=== PATIENT | male | born 1945 | race Caucasian/White ===

== ENCOUNTER 2023-08-23 10:36 | Day surgery (SDC) | payer OTHER ==
[2023-08-21 13:16] LABS: Absolute Basophils 0.1 K/uL (0-0.5); Absolute Eosinophils 0.1 K/uL (0-0.5); Absolute Lymphocytes (CBC) 1.3 K/uL (0.7-4.9); Absolute Monocytes 0.7 K/uL (0.1-1.3); Absolute Neutrophil 5.4 K/uL (1.8-8.0); Basophils % 0.9 % (0-1.3); Eosinophils % 1.5 % (0-4.4); Hematocrit 34.3 % (39.6-49.0); Hemoglobin 11.5 g/dL (13.6-17.9); Lymphocytes % 16.5 % (15.3-44.8); MCH 32.4 pg (27.0-35.0); MCHC 33.5 g/dL (32.0-36.0); MPV 8.4 fL (7.6-11.3); Monocytes % 9.7 % (3.3-12.3); Neutrophils % 71.4 % (41.7-73.7); Platelets 114 thou/uL (152-406); RBC Red Blood Cell Count 3.54 M/uL (4.33-5.43); Red Cell Distribution Width 16.9 % (12.1-15.2)
[2023-08-21 13:53] LABS: Anion Gap 11.3 mEq/L (5.0-15.0); Potassium 5.3 mEq/L (3.5-5.1)
--- NOTE | 2023-08-21 17:03 | EKG ---
Test Date: 2023-08-21 Test Time: 13:47:12 [employer] Manager: GIA MEASUREMENT RESULTS: Intervals: Rate: 93 MO: QRSD: 130 QT: 428 QTc: 532 [place]: P: MO: QRS: -27 T: 122 INTERPRETIVE STATEMENTS: Marked sinus bradycardia with AV dissociation and Wide QRS rhythm with premature supraventricular complexes with occasional pre Left bundle branch block Abnormal ECG No previous ECG available for comparison Electronically Signed On 08-21-23 17:02:05 PACK PRESS OPERATOR by Fredi Spivey
[2023-08-23] MEDS: NA CHLORIDE 0.9% 500 ML ONE (11:20)
[2023-08-23] MEDS ORDERED: ONDANSETRON 4 MG/2 ML VIAL ONE (12:26)
[2023-08-23] MEDS ORDERED: FENTANYL CITR 100 MCG/2 ML ONE (12:26)
[2023-08-23] MEDS ORDERED: propofoL 200 MG/20 ML VIAL IV ONE (12:26)
[2023-08-23] MEDS ORDERED: ROCURONIUM 50 MG/5 ML VIAL IV ONE (12:27)
[2023-08-23] MEDS ORDERED: LIDOCAINE 2% MPF 5 ML VIAL ONE (12:27)
[2023-08-23] MEDS: CEFAZOLIN SODIUM 2 GM/VIAL ONE (12:50)
[2023-08-23] MEDS: BUPIVACAINE 0.25% PF 30 ML VIAL ONE (13:30)
[2023-08-23] MEDS ORDERED: SUGAMMADEX SODIUM 200 MG/2 ML VIAL IV ONE (13:50)
[2023-08-23] MEDS: HEPARIN 500 UNIT/5 ML SYR IV ONE (14:00)
--- NOTE | 2023-08-23 14:15 | P.OP ---
Preoperative diagnosis: Peritoneal Dialysis Catheter Dysfunction Postoperative diagnosis: Peritoneal Dialysis Catheter Dysfunction Primary procedure: Exploratory Laparoscopy Secondary procedure: Revision /Repair of Dysfunctional PD catheter Other procedure(s): Laparoscopic adhesiolysis Anesthesia: GETA + Local Estimated blood loss: < 5 Specimen: None Findings: PD Catheter contained in Omental tissue Complications: None Implants: Original PD Cath remains in place Transferred to: Recovery Room Condition: Good
[2023-08-23] MEDS: LABETALOL 20 MG/4ML SYRINGE IV ONE (14:46)
[2023-08-23 16:06] VITALS: BP 141/74; TEMP 96.5; O2SAT 95
--- NOTE | 2023-08-23 20:09 | OP ---
Date of Procedure: 08/23/2023 Surgeon: Enmanuel Rocha MD, Preoperative Diagnosis: Peritoneal dialysis catheter dysfunction. Postoperative Diagnosis: Peritoneal dialysis catheter dysfunction. Procedures Performed: 1.Exploratory laparoscopy. 2.Revision/repair of dysfunctional peritoneal dialysis catheter. 3.Laparoscopic adhesiolysis. Anesthesia: General endotracheal plus local with 0.25% Marcaine. Estimated Blood Loss: 5 cc. Specimen: None. Findings: Peritoneal dialysis catheter was contained within omental tissue completely encased in the scar tissue which was removed and made to be functional after being repositioned in the pelvis in ap propriate position. Implants: Original peritoneal dialysis catheter remained in place in the left mid abdomen. Disposition: Patient transferred to recovery room in good condition. Procedure In Detail: After informed consent was obtained, patient brought to the operating room, pre pped and draped in the usual sterile fashion. After adequate anesthesia was achieved, I made a left lower quadrant incision down to subcutaneous tissue. A 5-mm 0-degree optical trocar was introduced i nto the abdomen without incident or complication. Insufflation was obtained to 15 mmHg, at this time . There were no injury to vital structures upon entry into the abdomen. Additional trocar was place d in the left mid abdomen. This was similarly anesthetized and sharply incised. A 5 mm trocar was p laced under direct visualization without incident or complication. I then grasped the peritoneal vikas lysis catheter. It was found to have contained within the omentum and the anterior abdominal wall up and out of the pelvis in an appropriate position. I used the LigaSure device to take down the oment al attachments performing a laparoscopic adhesiolysis until I removed the catheter from its contained soft tissue. At this point, the catheter was withdrawn multiple times. Some fluid was placed into the catheter and flushed out until completely clear by pulling back on it. No infusions were perform ed, at this point, until the catheter was completely clear. At this point, I repositioned the cathet er in the deep pelvic space posterior of the bladder in the central position. I then noted air emana ting from this catheter and it was functioning quite well, at this point. I then infused saline into the catheter, positioned in neutral position and got all of the fluid back rapidly. At this point, the catheter was flushed multiple times until completely clear with sterile saline from inside to out side allowing for cleansing of the residual catheter in a negative pressure type orientation. At thi s point, the catheter was capped and instilled with heparinized saline. Hemostatic measures were req uired, at this point, and the abdomen was decompressed under direct visualization without incident or complication. All trocars were removed. All skin incisions were then copiously irrigated and close d with a 4-0 Monocryl in a running fashion. Dermabond was placed over top. Patient tolerated the pr ocedure without incident or complication. Transferred to PACU in good condition. All counts were co rrect at the end of the case. TK/MODL Voice ID: [id number] Report ID: [id number]
== END 2023-08-23 15:51 | disposition home or self-care (01) ==
LOC: OR 10:36
PROVIDERS: ATTEND Surgery
PROC: 0DNW4ZZ Release Peritoneum, Percutaneous Endoscopic Approach (ICD-10-PCS; 2023-08-23)
PROC: 03WY33Z Revision of Infusion Device in Upper Artery, Percutaneous Approach (ICD-10-PCS; principal; 2023-08-23 12:30)
DX: N18.6 End stage renal disease (principal); T85.611A Breakdown (mechanical) of intraperitoneal dialysis catheter, initial encounter; K66.0 Peritoneal adhesions (postprocedural) (postinfection)
CPT/HCPCS: 36575; 49329; 93005; 85025; 80048; 36415; J2704; J2001; J3010; J1642; J2405; J7040